=== PATIENT | female | born 1950 | race Hispanic/Latino ===

== ENCOUNTER 2018-09-18 15:26 | Emergency (ER) | payer OTHER ==
[2018-09-18] MEDS ORDERED: Ibuprofen 800 MG TAB ONE (15:54)
--- NOTE | 2018-09-18 16:07 | RAD ---
RIGHT KNEE FOUR VIEWS: 09/18/18 INDICATION: Pain. Injury. FINDINGS: Extrinsic artifacts are present. There is no evidence of fracture or dislocation identified. No signi ficant joint capsular distention. There is mild osteophytosis. IMPRESSION: No acute fracture of the right knee evident. POS: [facility]
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
== END 2018-09-18 16:55 | disposition home or self-care (01) ==
LOC: ERS 15:26
DX: S20.212A Contusion of left front wall of thorax, initial encounter (principal); S80.211A Abrasion, right knee, initial encounter; E05.90 Thyrotoxicosis, unspecified without thyrotoxic crisis or storm; Z79.899 Other long term (current) drug therapy; V43.52XA Car driver injured in collision with other type car in traffic accident, initial encounter
CPT/HCPCS: 71045; 93005